=== PATIENT | male | born 1985 | race Caucasian/White ===

== ENCOUNTER 2023-04-12 13:36 | Inpatient (IN) | payer MEDICAID, SELFPAY ==
[2023-04-12 13:59] VITALS: BMI 29.7
[2023-04-12 14:03] VITALS: BP 145/88; PULSE 73; RESP 20; TEMP 36.6; O2SAT 99
--- NOTE | 2023-04-12 17:26 | PC.NURSE ---
Nurse asked pt how he felt after his shower, pt replied ah pretty good, but this thing in my body is moving around now .
[2023-04-12] MEDS: hyDROXYzine 25 mg Capsule 50 MG PO (18:55)
[2023-04-12] MEDS: nicotine 4 mg lozenge MUCOUS MEM (19:53)
[2023-04-12] MEDS: trazodone 50 mg Tablet PO (20:04)
[2023-04-12 20:07] VITALS: BP 135/84; PULSE 76; RESP 18; O2SAT 99
--- NOTE | 2023-04-13 06:59 | PC.NURSE ---
pt resting resp 15
--- NOTE | 2023-04-13 12:30 | P.NPUHP_ITS ---
Providers/Chief Complaint Admitting Physician: Ney Vazquez MD Chief Complaint: Psychosis HPI NPU History of Present Illness Luis Montez is a 37 year old male who presented to an outside hospital with significant paranoia and psychotic belief that there was a worm moving around in his body. He had reportedly been to that hospital multiple times recently with the same symptoms. There was report of significant methamphetamine use and positive methamphetamine/amphetamine screens. An affidavit was written and he was transferred to [facility] and was admitted to the neuropsychiatric unit for definitive treatment of those issues. The patient presents today reporting that he has had Haldol and possibly Risperdal. He reports that he was at [facility] in [place], [place]. The patient reports that two months ago his , who is 6?2? and 300 pounds, walked on his back. That night he had a sharp pain in his groin and since then has felt like there is something moving in his body. He reports that stopped two days ago. He reports that he slashed his own truck tires so he would not run from the police, because the child and family therapist were coming. He reports that he just got off parole two years ago, but he wanted the child and family therapist to come help him because he thought there was something in his body. He reports that he has used methamphetamine, off and on, for that last 14 years. Now that he has not had that for a few days, he doesn?t feel anything inside of him except for the pain in his body. The patient denies previous psychiatric hospitalization. He has been to the hospital numerous times related to the feelings of worms in his body, and he reports that the last time he ?flipped out.? He denies previous outpatient services. He denies previous psychiatric medication. He reports that he smokes about a pack of cigarettes a day. He endorses alcohol and marijuana use daily. He denies cocaine use. He reports that he last had methamphetamine five to six days ago. He denies opiates, mushrooms, PCP, or other illicit drug use. He denies drug rehabilitation. He denies DUI. He reports that he has had a paraphernalia charge. We discussed that it is a very high likelihood that he is experiencing delusions from the methamphetamine. He reports that he was in long-term seven months one time and 120 before that. He reports that he has ?separation anxiety? when he is away from his family. He has been nine years and has four children, 10-year-old twins, boy and girl, and 7-year-old boy and 4-year-old boy. He reports that he lives in a house with his . 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 He reports that methamphetamine is like his morning cup of coffee, and he then goes to work. We discussed that there is an affidavit so he could be held, but that we would like to observe him longer, and would like to address his challenges with methamphetamine. He reports that he does not want to do methamphetamine anymore and wants to be with his family, so explained to him that because of his history, need to have a plan to address the methamphetamine addiction, and explained his apparent susceptibility to these delusions that seem to be related to the methamphetamine. PSYCHIATRIC HISTORY: As above. SUBSTANCE ABUSE HISTORY: As above.? FAMILY HISTORY: The patient endorses mental health issues on his mom?s side of the family. He reports addiction issues on mom's side. He denies suicide attempts or completions. DEVELOPMENTAL HISTORY: The patient denies any issues with his mother?s or delivery of him. The patient reports learning to walk and talk and meeting developmental milestones on time. The patient endorses behavioral problems in school. ?She denies IEP or 504 plans. PSYCHOSOCIAL HISTORY: The patient reports that his mother and father were together at his , and recently split up. There are three children from that union and no other siblings. The patient is the oldest child, and he reports that he took care of his younger brother and sister while his parents were at work, and that was pretty much his childhood. He denies emotional, physical, or sexual abuse. He denies other traumas or flashbacks. He reports that he now has some nightmares, especially about his leaving him. He reports that he did not graduate from high school or get his GED; highest grade was 11th grade. He endorses being heterosexual, with his longest relationship being about ten years. He has been once and is still . He has four children, 10-year-old twins, boy and girl, from another relationship, and 7-year-old and 4-year-old boys. He has not been in the . He endorses being Christianity. He reports that the longest job he has had is about six years. He reports that he lives in a house with his . LEGAL HISTORY: He reports being to retirement several times. He reports that he was in long-term seven months one time and 120 before that. MEDICAL HISTORY: The patient endorses allergy to Penicillin. The patient endorses back problems. Meds NPU Home Medications Medication Instructions Recorded Confirmed Last Taken Type cyclobenzaprine 10 mg tablet 10 mg PO TID PRN Muscle Spasm 04/12/23 04/12/23 Unknown History risperidone 1 mg tablet (Risperdal) 1 mg PO DAILY 04/12/23 04/12/23 Unknown History Allergies Allergy/AdvReac Type Severity Reaction Status Date / Time Penicillins Allergy Unknown Verified 04/12/23 17:35 Mental Status Exam MSE Comments: This is a well-nourished, well-developed, white male, in hospital scrubs, with limited grooming and adequate eye contact. With tattoos on exposed skin. No abnormal movements. Cooperative with exam in mild distress. Speech was normal rate and volume. Mood described as pretty good; affect congruent. Thought process, organized. Thought content: patient denied any suicidal or homicidal ideation; there were no delusions reported but somatic delusions exist with feeling worms are in his body; patient denied auditory or visual hallucinations but is clearly having tactile hallucinations. Attention, concentration, and memory appeared intact, but none were formally tested. Alert and oriented times three. Insight and judgment are limited. Impulse control is impaired. Vitals/I&O/Wt Last Vital Signs Temp 98 F 04/13/23 13:46 Pulse 96 04/13/23 13:46 Resp 20 H 04/13/23 13:46 BP 133/87 04/13/23 13:46 Pulse Ox 100 04/13/23 13:46 O2 Del Method Room Air 04/12/23 20:07 Weight last 48 hrs Weight 81.647 kg Weight 86.001 kg A&P Assessment and plan (1) Psychosis: (2) Somatic delusion: (3) Methamphetamine use disorder, severe: Plan This is a 37-year-old, white male, with a long history of methamphetamine abuse, who presents with somatic delusions and tactile hallucinations. 1.? Continue observation. 2.? Encourage individual, group, and milieu therapy. 3.? Continue q-15-minute checks for safety. 4.? Recommend sober living treatment at the highest level of care to which the patient is willing to commit. Involuntary Hold Information 96 Hour Hold: 96 Hour Involuntary Admission: No Attestations NPU Medical Necessity Statement*: Inpatient hospitalization is medically necessary and the clinically appropriate intervention, at this time. We will monitor medications and make changes as indicated. Patient will be in the hospital for over two midnights. Likely length of stay is three to five days. Coding Level of Care Code Acute Code for g Fwd Diagnoses Psychosis F29 Somatic delusion F22 Methamphetamine use disorder, severe F15.20
[2023-04-13 13:46] VITALS: BP 133/87; PULSE 96; RESP 20; TEMP 36.6; O2SAT 100
[2023-04-13] MEDS: ibuprofen 600 mg Tablet PO (18:38)
[2023-04-13 20:34] VITALS: BP 132/81; PULSE 83; RESP 20; O2SAT 99
[2023-04-14 06:00] VITALS: BP 143/90; PULSE 68; RESP 16; O2SAT 99
--- NOTE | 2023-04-14 08:27 | W.PM.NPUPNS ---
Subjective NPU Subjective: Patient presented today reporting that his tactile hallucinations have gone away. We had a long conversation about how long this is really been going on but she reports its been years. He reports he always chalked it up to this or that but now he except the fact that his thoughts about something moving in his body have been tied to his prolonged methamphetamine use which he plans to discontinue. We once again discussed the possibility of medication but he continues to deny symptoms. We discussed that it is likely that minus future use the symptoms might stay at bay, but there is a need for ongoing treatment for monitoring. Mental Status Exam MSE Comments: This is a well-nourished, well-developed, white male, in hospital scrubs, with limited grooming and adequate eye contact. With tattoos on exposed skin. No abnormal movements. Cooperative with exam in mild distress. Speech was normal rate and volume. Mood described as pretty good; affect congruent. Thought process, organized. Thought content: patient denied any suicidal or homicidal ideation; there were no delusions reported but somatic delusions exist with feeling worms are in his body; patient denied auditory or visual hallucinations and denied continuing tactile hallucinations. Attention, concentration, and memory appeared intact, but none were formally tested. Alert and oriented times three. Insight and judgment are limited. Impulse control is impaired. Vitals/I&O/Wt Last Vital Signs Temp 98 F 04/13/23 13:46 Pulse 68 04/14/23 06:00 Resp 16 04/14/23 06:00 BP 143/90 04/14/23 06:00 Pulse Ox 99 04/14/23 06:00 O2 Del Method Room Air 04/14/23 06:00 Weight last 48 hrs Weight 81.647 kg Weight 86.001 kg A&P Assessment and plan (1) Psychosis: (2) Somatic delusion: (3) Methamphetamine use disorder, severe: Plan This is a 37-year-old, white male, with a long history of methamphetamine abuse, who presents with somatic delusions and tactile hallucinations. 1.? Continue observation. And consider medication. 2.? Encourage individual, group, and milieu therapy. 3.? Continue q-15-minute checks for safety. 4.? Recommend sober living treatment at the highest level of care to which the patient is willing to commit. Involuntary Hold Information 96 Hour Hold: 96 Hour Involuntary Admission: No Attestations NPU Medical Necessity Statement*: Inpatient hospitalization is medically necessary and the clinically appropriate intervention, at this time. We will monitor medications and make changes as indicated.Likely length of stay is 2-4 days. Coding Level of Care Code Acute Code for Chg Fwd Diagnoses Psychosis F29 Somatic delusion F22 Methamphetamine use disorder, severe F15.20
[2023-04-14] MEDS: nicotine 4 mg lozenge MUCOUS MEM ×4 (09:16→18:08)
[2023-04-14] MEDS: acetaminophen 325 mg Tablet 650 MG PO (09:16)
[2023-04-14 14:00] VITALS: BP 105/65; PULSE 87; RESP 16; TEMP 36.6; O2SAT 100
[2023-04-14] MEDS: hyDROXYzine 25 mg Capsule 50 MG PO (14:44)
[2023-04-14 19:44] VITALS: BP 125/79; PULSE 80; RESP 18; TEMP 36.3; O2SAT 100
[2023-04-14] MEDS: trazodone 50 mg Tablet PO (20:22)
[2023-04-14] MEDS: nicotine 2 mg Gum BUCCAL (20:22)
[2023-04-15 06:00] VITALS: BP 145/86; PULSE 75; RESP 16; TEMP 36.6; O2SAT 99
[2023-04-15] MEDS: nicotine 4 mg lozenge MUCOUS MEM ×4 (09:50→18:03)
--- NOTE | 2023-04-15 12:43 | W.PM.NPUPNS ---
Subjective NPU Subjective: Patient presented today reporting that he is feeling better. He reports that he is having no symptoms of the tactile hallucinations that have plagued him for some time. He is getting a better appreciation of how much that is related to his methamphetamine use. We discussed the treatment team returning tomorrow and they will work with him to find appropriate aftercare. He still is reporting a desire not to start medication. We discussed the probable discharge tomorrow but certainly in the next 48 hours. Mental Status Exam MSE Comments: This is a well-nourished, well-developed, white male, in hospital scrubs, with limited grooming and adequate eye contact. With tattoos on exposed skin. No abnormal movements. Cooperative with exam in no acute distress. Speech was normal rate and volume. Mood described as pretty good; affect congruent. Thought process, organized. Thought content: patient denied any suicidal or homicidal ideation; there were no delusions reported but somatic delusions exist with feeling worms are in his body; patient denied auditory or visual hallucinations and denied continuing tactile hallucinations. Attention, concentration, and memory appeared intact, but none were formally tested. Alert and oriented times three. Insight and judgment are limited. Impulse control is impaired. Vitals/I&O/Wt Last Vital Signs Temp 97.9 F 04/15/23 06:00 Pulse 75 04/15/23 06:00 Resp 16 04/15/23 06:00 BP 145/86 04/15/23 06:00 Pulse Ox 99 04/15/23 06:00 O2 Del Method Room Air 04/15/23 06:00 Weight last 48 hrs Weight 86.296 kg Weight 86.296 kg A&P Assessment and plan (1) Psychosis: (2) Somatic delusion: (3) Methamphetamine use disorder, severe: Plan This is a 37-year-old, white male, with a long history of methamphetamine abuse, who presents with somatic delusions and tactile hallucinations. 1.? Continue observation. And consider medication. 2.? Encourage individual, group, and milieu therapy. 3.? Continue q-15-minute checks for safety. 4.? Recommend sober living treatment at the highest level of care to which the patient is willing to commit. Involuntary Hold Information 96 Hour Hold: 96 Hour Involuntary Admission: No Attestations NPU Medical Necessity Statement*: Inpatient hospitalization is medically necessary and the clinically appropriate intervention, at this time. We will monitor medications and make changes as indicated.Likely length of stay is 1-3 days. Coding Level of Care Code Acute Code for Chg Fwd Diagnoses Psychosis F29 Somatic delusion F22 Methamphetamine use disorder, severe F15.20
[2023-04-15 14:00] VITALS: BP 136/94; PULSE 88; RESP 16; TEMP 36.6; O2SAT 97
[2023-04-15] MEDS: hyDROXYzine 25 mg Capsule 50 MG PO (15:10)
[2023-04-15] MEDS: OLANZapine 5 mg ODT PO (18:22)
--- NOTE | 2023-04-15 18:23 | PC.NURSE ---
Patient anxious. Another patient is yelling in the hallway. Administered Zyprexa 5mg ODT.
[2023-04-15 19:39] VITALS: BP 135/82; PULSE 71; RESP 16; TEMP 37.1; O2SAT 98
[2023-04-16 06:00] VITALS: BP 133/88; PULSE 70; RESP 16; O2SAT 98
--- NOTE | 2023-04-16 07:14 | W.PM.NPUDCS ---
Diagnoses at Discharge Discharge Diagnosis (1) Psychosis: Status: Resolved (2) Somatic delusion: Status: Resolved (3) Methamphetamine use disorder, severe: Status: Acute Reason for Visit Reason for Visit: Psychosis Brief History: History of Present Illness Luis Montez is a 37 year old male who presented to an outside hospital with significant paranoia and psychotic belief that there was a worm moving around in his body.? He had reportedly been to that hospital multiple times recently with the same symptoms.? There was report of significant methamphetamine use and positive methamphetamine/amphetamine screens.? An affidavit was written and he was transferred to [facility] and was admitted to the neuropsychiatric unit for definitive treatment of those issues. The patient presents today reporting that he has had Haldol and possibly Risperdal. He reports that he was at [facility] in [place], [place]. The patient reports that two months ago his , who is 6?2? and 300 pounds, walked on his back. That night he had a sharp pain in his groin and since then has felt like there is something moving in his body. He reports that stopped two days ago. He reports that he slashed his own truck tires so he would not run from the police, because the machine riveter were coming. He reports that he just got off parole two years ago, but he wanted the machine riveter to come help him because he thought there was something in his body. He reports that he has used methamphetamine, off and on, for that last 14 years. Now that he has not had that for a few days, he doesn?t feel anything inside of him except for the pain in his body. The patient denies previous psychiatric hospitalization. He has been to the hospital numerous times related to the feelings of worms in his body, and he reports that the last time he ?flipped out.? He denies previous outpatient services. He denies previous psychiatric medication. He reports that he smokes about a pack of cigarettes a day. He endorses alcohol and marijuana use daily. He denies cocaine use. He reports that he last had methamphetamine five to six days ago. He denies opiates, mushrooms, PCP, or other illicit drug use. He denies drug rehabilitation. He denies DUI. He reports that he has had a paraphernalia charge. We discussed that it is a very high likelihood that he is experiencing delusions from the methamphetamine. He reports that he was in penitentiary seven months one time and 120 before that. He reports that he has ?separation anxiety? when he is away from his family. He has been nine years and has four children, 10-year-old twins, boy and girl, and 7-year-old boy and 4-year-old boy. He reports that he lives in a house with his . 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 He reports that methamphetamine is like his morning cup of coffee, and he then goes to work. We discussed that there is an affidavit so he could be held, but that we would like to observe him longer, and would like to address his challenges with methamphetamine. He reports that he does not want to do methamphetamine anymore and wants to be with his family, so explained to him that because of his history, need to have a plan to address the methamphetamine addiction, and explained his apparent susceptibility to these delusions that seem to be related to the methamphetamine. PSYCHIATRIC HISTORY: As above. SUBSTANCE ABUSE HISTORY: As above.? FAMILY HISTORY: The patient endorses mental health issues on his mom?s side of the family. He reports addiction issues on mom's side. He denies suicide attempts or completions. DEVELOPMENTAL HISTORY: The patient denies any issues with his mother?s or delivery of him. The patient reports learning to walk and talk and meeting developmental milestones on time. The patient endorses behavioral problems in school. ?She denies IEP or 504 plans. PSYCHOSOCIAL HISTORY: The patient reports that his mother and father were together at his , and recently split up. There are three children from that union and no other siblings. The patient is the oldest child, and he reports that he took care of his younger brother and sister while his parents were at work, and that was pretty much his childhood. He denies emotional, physical, or sexual abuse. He denies other traumas or flashbacks. He reports that he now has some nightmares, especially about his leaving him. He reports that he did not graduate from high school or get his GED; highest grade was 11th?grade. He endorses being heterosexual, with his longest relationship being about ten years. He has been once and is still . He has four children, 10-year-old twins, boy and girl, from another relationship, and 7-year-old and 4-year-old boys. He has not been in the . He endorses being Jewish. He reports that the longest job he has had is about six years. He reports that he lives in a house with his . LEGAL HISTORY: He reports being to long term several times. He reports that he was in penitentiary seven months one time and 120 before that. MEDICAL HISTORY: The patient endorses allergy to Penicillin. The patient endorses back problems. Hospital Course Hospital Course He quickly acclimated to the individual, group and milieu therapies provided.? He presented to the emergency department with psychotic symptoms which he has had off and on for some time but he also has had significant methamphetamine use. His psychosis resolved after being here and being days removed from his methamphetamine use which gave him some greater insight into the cause of his psychosis. He worked with the social work team to get appropriate aftercare but was resistant to any intensive drug and alcohol treatment. He had significant improvement during the stay and he was able to contract for safety outside the hospital prior to discharge.? At the outside hospital, patient had routine laboratory studies which were within normal limits except for few outliers.? Additionally there was a general medical evaluation which was also within normal limits and revealed no new acute processes. Discharge Summary: At the time of discharge, he denied psychosis or lethality.? Mood and anxiety were well managed.? Patient endorsed a plan to avoid all drugs of abuse and follow-up with the aftercare recommendations of the treatment team.? Patient was evaluated and deemed to be absent credible lethality, and had achieved the maximum benefit from an inpatient hospitalization, so was discharged. Involuntary Hold Information 96 Hour Hold: 96 Hour Involuntary Admission: No Mental Status Exam MSE Comments: This is a well-nourished, well-developed, white male, in hospital scrubs, with limited grooming and adequate eye contact. With tattoos on exposed skin. No abnormal movements. Cooperative with exam in no acute distress. Speech was normal rate and volume. Mood described as pretty good; affect congruent. Thought process, organized. Thought content: patient denied any suicidal or homicidal ideation; there were no delusions reported but somatic delusions exist with feeling worms are in his body; patient denied auditory or visual hallucinations and denied continuing tactile hallucinations. Attention, concentration, and memory appeared intact, but none were formally tested. Alert and oriented times three. Insight and judgment are limited. Impulse control is impaired. Discharge Data Vitals: Last Vital Signs Temp 98.8 F 04/15/23 19:39 Pulse 70 04/16/23 06:00 Resp 16 04/16/23 06:00 BP 133/88 04/16/23 06:00 Pulse Ox 98 04/16/23 06:00 O2 Del Method Room Air 04/16/23 06:00 Discharge Plan Discharge Patient Disposition: Home Condition: Stable Prescriptions: Discontinued cyclobenzaprine 10 mg tablet 10 mg PO TID PRN (Reason: Muscle Spasm) risperidone [Risperdal] 1 mg tablet 1 mg PO DAILY Discharge Orders: Discharge Order (Routine); Ordered 04/16/23 Ordered By: Ney Vazquez Referrals: [facility]-Initial intake [Other] - 04/27/23 9:00 am (Initial intake for services) [facility]-EPIC [facility]OW ANALYST [facility] [Other] - 05/14/23 8:20 am (Mrdication Management) Discharge Diet: Regular Discharge Activity: Resume usual activity Patient Instructions: Opioid Safety Discharge Attestations NPU Time Spent in Discharge Care*: less than 30 min Specific Discharge Activities: Specific discharge activities: educating patient, discussing with counseling case manager/social workers/dc planners, documenting/other paperwork and evaluating patient/reviewing data Coding Level of Care Code Acute Chg FW DC note Diagnoses Psychosis F29 Somatic delusion F22 Methamphetamine use disorder, severe F15.20
[2023-04-16 07:24] VITALS: BP 133/88; PULSE 70; RESP 16; O2SAT 98
[2023-04-16] MEDS: nicotine 4 mg lozenge MUCOUS MEM ×3 (08:40→12:52)
[2023-04-16] MEDS: acetaminophen 325 mg Tablet 650 MG PO (13:19)
== END 2023-04-16 14:18 | disposition home or self-care (01) | DRG 897 ==
PROVIDERS: Admitting Provider Psychiatry & Neurology Psychiatry; Visit Provider Psychiatry & Neurology Psychiatry
DX: F15.951 Other stimulant use, unspecified with stimulant-induced psychotic disorder with hallucinations (principal); F22 Delusional disorders; F17.210 Nicotine dependence, cigarettes, uncomplicated
CPT/HCPCS: 97150; 97165